=== PATIENT | male | born 1980 | race Caucasian/White ===

== ENCOUNTER 2020-02-06 09:16 | Emergency (ER) | payer OTHER ==
[~2020-02-06] VITALS: Ht 172.7 cm; Wt 99.8 kg
[2020-02-06] MEDS ORDERED: PREDNISONE 10 M10 M1 PO (09:35)
[2020-02-06] MEDS ORDERED: DIPHENHIST50 MG PO (09:35)
[2020-02-06 09:40] VITALS: BP 132/92
== END 2020-02-06 09:40 | disposition home or self-care (01) ==
LOC: M.ERS 09:16
DX: L25.9 Unspecified contact dermatitis, unspecified cause (principal); F17.210 Nicotine dependence, cigarettes, uncomplicated; Z90.49 Acquired absence of other specified parts of digestive tract